=== PATIENT | male | born 1985 | race Caucasian/White ===

== ENCOUNTER 2024-01-02 08:56 | Emergency (ER) | payer OTHER, SELFPAY ==
[2024-01-02 09:09] VITALS: BP 114/72; PULSE 69; RESP 16; TEMP 36.4; O2SAT 100
--- NOTE | 2024-01-02 09:24 | ED.SKABFB ---
HPI - Skin/Abscess/Foreign Bdy General Chief complaint: Skin/Abscess/Foreign Body Stated complaint: left index finger issue Time Seen by Provider: 01/02/24 09:21 Source: patient and RN notes reviewed Mode of arrival: ambulatory Limitations: no limitations History of Present Illness HPI narrative: Patient presents today with swelling and pain to the left 2nd finger at the nail fold x5 days. Denies any drainage. Pain-free at rest,, but increases to 8/10 with touching. Reports similar incident approximately 15 years ago. Related Data Allergies Allergy/AdvReac Type Severity Reaction Status Date / Time No Known Allergies Allergy Verified 01/02/24 09:11 Review of Systems Review of Systems: CONSTITUTIONAL: Denies body aches, fever, chills, or sweats. EYES: Denies visual changes, redness, or discharge. ENT: Denies rhinorrhea, congestion, sore throat, or otalgia. CARDIOVASCULAR: Denies chest pain, palpitations, or edema. RESPIRATORY: Denies cough or dyspnea. GASTROINTESTINAL: Denies abdominal pain, nausea, vomiting, or diarrhea. GENITOURINARY: Denies dysuria or hematuria. SKIN: Denies rash, itching, or wounds. MUSCULOSKELETAL: Pain and swelling to left 2nd finger NEUROLOGIC: Denies headache, numbness, tingling, or weakness. PSYCH: Denies depression or anxiety. PMFSH Comments At time of signature, I have reviewed and agree with nursing past medical, surgical, social and family history unless otherwise noted. Please see nursing chart for further information. There is no relevant family history pertinent to the presenting complaint Exam Narrative: GENERAL: Well-appearing, well-nourished, and in no acute distress. HEAD: Normocephalic, atraumatic. EYES: EOMI. No redness or drainage. Conjunctivae normal. ENT: Mucous membranes pink and moist. NECK: Normal AROM. CHEST: No respiratory distress. EXTREMITIES: Left 2nd finger: Redness and swelling surrounding the fingernail with obvious paronychia noted. Distal sensation intact. Capillary refill normal. Full range of motion. Tender to palpation. SKIN: Warm, dry, no rash. Capillary refill normal. Normal skin turgor. NEURO: No focal deficits. Alert and oriented x3. Gait steady. PSYCH: Normal affect. No signs of depression or anxiety. Course Course Level of Care: Express Care Visit Vital Signs Vital signs: Vital Signs Temperature 97.5 F L 01/02/24 09:09 Pulse Rate 69 01/02/24 09:09 Respiratory Rate 16 01/02/24 09:09 Blood Pressure 114/72 01/02/24 09:09 Pulse Oximetry 100 01/02/24 09:09 Oxygen Delivery Room Air 01/02/24 09:09 Temperature 97.5 F L 01/02/24 09:09 Pulse Rate 69 01/02/24 09:09 Respiratory Rate 16 01/02/24 09:09 Blood Pressure 114/72 01/02/24 09:09 Pulse Oximetry 100 01/02/24 09:09 Oxygen Delivery Room Air 01/02/24 09:09 Reviewed Procedures Abscess I/D Paronychia: Date of Incision: 01/02/24 Time of Incision: 09:40 Side (if applicable): left Technique: incised with #11 blade Amount of fluid expressed (mL): 0.5 Irrigation: No Packing used?: none I&D Results: Pus and Blood Abcess I&D Additional Comments: Patient tolerated procedure well. Dressed with Band-Aid Nerve Block Nerve Block 1: Nerve block date: 01/02/24 Nerve block time: 09:30 Local Anesthetic: lidocaine 1% Amount of anesthesia used (mL): 5 Side: left Nerve Blocks: digital (Left 2nd finger) Procedure Successful: Yes Patient Tolerated Procedure: well Complications: none MDM - Skin/Abscess/Foreign Bdy MDM Narrative Medical decision making narrative: Paronychia was drained. Patient tolerated procedure well prescription for Bactrim sent to pharmacy. Anticipatory guidance given. Differential Diagnosis Differential diagnosis: Likely cellulitis and other (Paronychia,Felon) Critical Care Time Critical Care Time Critical Car
== END 2024-01-02 10:05 | disposition home or self-care (01) ==
PROVIDERS: Emergency Provider Nurse Practitioner
DX: L03.012 Cellulitis of left finger (principal)
CPT/HCPCS: 10060; 99213; G0463